=== PATIENT | male | born 1990 | race Caucasian/White ===

== ENCOUNTER 2022-04-28 10:55 | Emergency (ER) | payer OTHER ==
[~2022-04-28] VITALS: Ht 180.3 cm; Wt 146.0 kg
[2022-04-28 11:06] VITALS: BP 138/97
[2022-04-28] MEDS ORDERED: KETOROLAC 60MG/2ML VIAL IM ONE (11:30)
[2022-04-28] MEDS ORDERED: AMOX1TAB16 MT (11:45)
[2022-04-28] MEDS ORDERED: IBUP-2029 MT (11:45)
== END 2022-04-28 16:11 | disposition home or self-care (01) ==
LOC: ER 10:55
DX: K04.7 Periapical abscess without sinus (principal); R68.84 Jaw pain; R22.0 Localized swelling, mass and lump, head
CPT/HCPCS: 96372; 99283; J1885